=== PATIENT | female | born 1990 | race American Indian/Alaskan Native ===

== ENCOUNTER 2021-05-12 14:28 | Emergency (ER) | payer SELFPAY ==
[2021-05-12] MEDS ORDERED: LIDOCAINE-MPF (1%) 10 MG/1 ML VIAL 5 ML INFILTRATI ONE (15:02)
[2021-05-12] MEDS ORDERED: AZITHROMYCIN 250 MG TAB PO ONE (15:02)
[2021-05-12 15:32] LABS: Bilirubin,Urine NEG (Negative); Blood,Urine NEG (Negative); Color,Urine Straw (Yellow); Protein,Urine <15 mg/dL mg/dL (Negative); Urobilinogen,Urine < 2.0 mg/dL (<2.0)
[2021-05-12 15:43] VITALS: BP 123/77
--- NOTE | 2021-05-12 15:43 | Emergency Department Report ---
ED Female HPI - General Chief complaint: Urogenital-Female Stated complaint: YEAST Time Seen by Provider: 05/12/21 14:51 Source: patient Mode of arrival: Ambulatory Limitations: No Limitations - History of Present Illness Initial comments: Patient is a 31-year-old female presents emergency room with complaints of vaginal discharge that began approximately 5 or 6 days ago. She states that the discharge is white in coloration. She states that she has associated vaginal itching and irritation. She states that she also felt a small lump to the right groin. She states that she believes she has a yeast infection. States that she attempted to use Monistat 3-day [id number] but it did not appear to be improving her symptoms. She denies any abdominal pain, pelvic pain, dysuria, urinary symptoms, back pain. Patient states that she was sexually active earlier this month. No past medical history. She states that she has an adverse reaction to doxycycline. Last menstrual cycle 04/30/2021. - Related Data Previous Rx's Medication Instructions Recorded Last Taken Type Fluconazole [Diflucan TAB] 150 mg PO QDAY 2 Days #6 tablet 05/12/21 Unknown Rx metroNIDAZOLE [Flagyl] 500 mg PO BID 7 Days #14 tab 05/12/21 Unknown Rx Allergies Allergy/AdvReac Type Severity Reaction Status Date / Time No Known Allergies Allergy Verified 05/12/21 14:37 ED Review of Systems ROS: Stated complaint: YEAST Other details as noted in HPI Comment: All other systems reviewed and negative ED Past Medical Hx - Past Medical History Previous Medical History?: No - Surgical History Past Surgical History?: No - Medications Home Medications: Home Medications Medication Instructions Recorded Confirmed Last Taken Type Fluconazole [Diflucan TAB] 150 mg PO QDAY 2 Days #6 tablet 05/12/21 Unknown Rx metroNIDAZOLE [Flagyl] 500 mg PO BID 7 Days #14 tab 05/12/21 Unknown Rx ED Physical Exam - General Limitations: No Limitations General appearance: alert, in no apparent distress - Head Head exam: Present: atraumatic, normocephalic - Eye Eye exam: Present: normal appearance - ENT ENT exam: Present: mucous membranes moist - GI/Abdominal GI/Abdominal exam: Present: soft, other (small right sided inguinal LAD, no erythema, no ttp). Absent: distended, tenderness, guarding, rebound, rigid - Neurological Exam Neurological exam: Present: alert, oriented X3 - Psychiatric Psychiatric exam: Present: normal affect, normal mood - Skin Skin exam: Present: warm, dry, intact ED Course Vital Signs 05/12/21 05/12/21 14:38 15:38 Temperature 98 F 98.4 F Pulse Rate 63 51 L Respiratory 16 16 Rate Blood Pressure 123/77 Blood Pressure 104/61 [Left] O2 Sat by Pulse 99 100 Oximetry ED Medical Decision Making - Lab Data Lab Results 05/12/21 Range/Units 15:15 Urine Color Straw (Yellow) Urine Turbidity Clear (Clear) Urine pH 6.0 (5.0-7.0) Ur Specific Stevens 1.004 (1.003-1.030) Urine Protein <15 mg/dl (Negative) mg/dL Urine Glucose (UA) Neg (Negative) mg/dL Urine Ketones Tr (Negative) mg/dL Urine Blood Neg (Negative) Urine Nitrite Neg (Negative) Urine Bilirubin Neg (Negative) Urine Urobilinogen < 2.0 (<2.0) mg/dL Ur Leukocyte Esterase Neg (Negative) Urine WBC (Auto) < 1.0 (0.0-6.0) /HPF Urine RBC (Auto) 2.0 (0.0-6.0) /HPF U Epithel Cells (Auto) < 1.0 (0-13.0) /HPF Urine HCG, Qual Negative (Negative) - Medical Decision Making Patient is a 31-year-old female presents emergency room with complaints of vaginal discharge that began approximately 5 or 6 days ago. She states that the discharge is white in coloration. She states that she has associated vaginal itching and irritation. She states that she also felt a small lump to the right groin. She states that she believes she has a yeast infection. States that she attempted to use Monistat 3-day [id number] but it did not appear to be improving her symptoms. She denies any abdominal pain, pelvic pain, dysuria, urinary symptoms, back pain. Patient states that she was sexually active earlier this month. No past medical history. She states that she has an adverse reaction to doxycycline. Last menstrual cycle 04/30/2021. Vitals are normal. UA is within normal limits. Urine is negative. Patient given azithromycin and ceftriaxone while in the emergency department to cover for STDs. Patient given prescription for fluconazole and Flagyl to cover for vaginitis. Patient has no clinical signs of PID or TOA, she is not having any abdominal tenderness or pelvic pain. Discussed the importance of outpatient follow-up for full STD panel. Advised patient Please take medication as prescribed. Follow-up with a clinic or the health department in order to have a full STD panel. Please have any partner tested and treated as well. Avoid sexual intercourse. Return to emergency room for any new or worsening symptoms. Critical care attestation.: If time is entered above; I have spent that time in minutes in the direct care of this critically ill patient, excluding procedure time. ED Disposition Clinical Impression: Vaginal discharge, Vaginal itching Disposition: HOME / SELF CARE / HOMELESS Is pt being admited?: No Does the pt Need Aspirin: No Condition: Stable Instructions: Vaginitis, [id number] Additional Instructions: Please take medication as prescribed. Follow-up with a clinic or the health department in order to have a full STD panel. Please have any partner tested and treated as well. Avoid sexual intercourse. Return to emergency room for any new or worsening symptoms. walk in clinic: [facility] Address: [address] [place] [id number] Prescriptions: Fluconazole [Diflucan TAB] 150 mg PO QDAY 2 Days #6 tablet metroNIDAZOLE [Flagyl] 500 mg PO BID 7 Days #14 tab Referrals: [facility] [Outside] - 2-3 Days Time of Disposition: 16:04 Print Language: [id number]
[2021-05-12 15:57] LABS: HCG Qualitative,Urine Negative (Negative); WBC,Urine < 1.0 /HPF (0.0-6.0)
== END 2021-05-12 16:14 | disposition home or self-care (01) ==
LOC: ED 14:28
DX: N89.8 Other specified noninflammatory disorders of vagina (principal); L29.2 Pruritus vulvae
CPT/HCPCS: 81001; 81025; 96372; 99283; J0696